=== PATIENT | female | born 1975 | race Caucasian/White ===

== ENCOUNTER → 2017-05-21 | Outpatient (CLI) | payer OTHER | LOC: M RAD 09:23 | DX: Z12.31 Encounter for screening mammogram for malignant neoplasm of breast (principal) ==

== ENCOUNTER → 2017-06-06 | Outpatient (REF) | payer OTHER | LOC: M LAB REF 11:36 | DX: E04.2 Nontoxic multinodular goiter (principal) ==

== ENCOUNTER → 2017-12-23 | Outpatient (CLI) | payer OTHER | LOC: M WUC 10:17 | DX: M25.571 Pain in right ankle and joints of right foot (principal) | CPT/HCPCS: 73610 ==

== ENCOUNTER → 2018-05-22 | Outpatient (CLI) | payer OTHER ==
--- NOTE | 2018-05-22 09:51 | REPMRS ---
Patient History The patient states she has not had a clinical breast exam in over a year. Family history of breast cancer at age 30 in maternal aunt, breast cancer at age 60 in paternal aunt, breast cancer at age 50 in maternal grandmother. Retro-pectoral saline implants in both breasts. Digital Mammo Screening Bilat: May 22, 2018 - Exam #: [id number] Bilateral CC and MLO view(s) were taken. Technologist: Kitty Donnelly, Technologist Prior study comparison: May 21, 2017, bilateral digital mammo screening bilat performed at [facility]. April 29, 2016, digital mammo screening bilat, performed at [facility]. FINDINGS: The breast tissue is heterogeneously dense. This may lower the sensitivity of mammography. There is a fairly symmetric fibroglandular pattern in both breasts. There has been no interval development of masses, areas of architectural distortion or clusters of microcalcifications typical of malignancy. Assessment: BI-RADS/ACR category 2 mammogram. Benign Findings. Recommendation Routine screening mammogram of both breasts in 1 year (for women over age 40). This mammogram was interpreted with the aid of an FDA-approved computer-aided dectection system. Electronically Signed By: Philippe Granados MD 05/22/18 0990
== END ==
LOC: M RAD 08:25
PROVIDERS: ATTEND Student in an Organized Health Care Education/Training Program
DX: Z12.31 Encounter for screening mammogram for malignant neoplasm of breast (principal); Z80.3 Family history of malignant neoplasm of breast

== ENCOUNTER → 2018-06-18 | Outpatient (REF) | payer OTHER ==
[2018-06-18 13:58] LABS: INFLUENZA A AMPLIFICATION POSITIVE (NEGATIVE); INFLUENZA B AMPLIFICATION NEGATIVE (NEGATIVE)
== END ==
LOC: M LAB REF 12:33
PROVIDERS: ATTEND Physician Assistant Medical
DX: J11.1 Influenza due to unidentified influenza virus with other respiratory manifestations (principal)

== ENCOUNTER → 2018-08-07 | Outpatient (CLI) | payer OTHER ==
--- NOTE | 2018-08-07 12:29 | REP ---
Clinical: Left lower quadrant pain. Technique: Transabdominal pelvic ultrasound followed by transvaginal examination for better evaluation of the endometrium and adnexa with color Doppler evaluation of the ovaries. Findings: Heterogeneous anteverted uterus measures 9.3 x 4.5 x 5.4 cm. Endometrial complex measures 15 mm thickness. No discrete uterine or endometrial abnormality appreciated. Incidental section scar noted. Bilateral ovaries are normal in vascularity without torsion. Right ovary measures 3.2 x 2.7 x 2.9 cm and includes 2.2 cm hemorrhagic follicle; RI 0.53. Left ovary measures 2.6 x 2.5 x 2.7 cm with 2.2 cm dominant follicle; RI 0.55. Small amount of free fluid in the posterior cul-de-sac. Impression: 1. Thickened endometrial complex likely physiologic and related to menstrual cycle. No focal abnormality appreciated to the uterus or endometrium. 2. Ovaries include right hemorrhagic cyst and left dominant follicle without evidence for torsion. Electronically Signed by Sergio Seo MD 08/07/2018 12:21 P
== END ==
LOC: M RAD 11:04
PROVIDERS: ATTEND Physician Assistant
DX: R10.32 Left lower quadrant pain (principal); N83.201 Unspecified ovarian cyst, right side

== ENCOUNTER 2019-02-28 09:19 | Observation (INO) | payer OTHER ==
[~2019-02-28] VITALS: Ht 162.6 cm; Wt 73.1 kg
[2019-02-28] MEDS ORDERED: NS 1,000 ML IV ONE (10:00)
[2019-02-28 10:24] LABS: BASO % 0.2 % (0.0-1.0); HEMATOCRIT 32.7 % (36.0-47.0); HEMOGLOBIN 10.5 g/dl (12.0-15.5); MEAN CORPUSCULAR HGB CONC 32.1 g/dl (32.0-36.5); MEAN CORPUSCULAR VOLUME 77.9 fl (80.0-96.0); MONO # 1.1 10^3/uL (0.0-0.8); MONO % 5.4 % (0.0-5.0); NEUTROPHILS # 17.5 10^3/uL (1.5-8.5); NEUTROPHILS % 88.8 % (36.0-66.0); PLATELET COUNT, AUTOMATED 352 10^3/uL (150-450); WHITE BLOOD COUNT 19.7 10^3/uL (4.0-10.0)
[2019-02-28] MEDS ORDERED: KETOROLAC 30 MG/ML VIAL (J1885) IV ONE (10:30)
[2019-02-28 10:51] LABS: ALBUMIN 3.2 GM/DL (3.2-5.2); BILIRUBIN,DIRECT 0.1 MG/DL (0.0-0.2); BILIRUBIN,TOTAL 0.5 MG/DL (0.2-1.0); TOTAL PROTEIN 7.3 GM/DL (6.4-8.2)
[2019-02-28] MEDS ORDERED: ISOVUE-370 76% 100ML VIAL (Q9967) As Ordered ONE (10:56)
[2019-02-28] MEDS ORDERED: MORPHINE 2 MG/ML 1ML VIAL (J2270) IV ONE ×2 (12:15→13:15)
[2019-02-28] MEDS ORDERED: ONDANSETRON 4MG/2ML VIAL (J2405) IV ONE (12:15)
--- NOTE | 2019-02-28 12:24 | REP ---
Pelvic sonography: History: Pelvic pain. Comparison pelvic sonography August 07, 2018. Comparison CT study is from earlier this date. Ultrasound findings: Uterine dimensions are 8.4 x 4.3 x 6.9 cm on transabdominal and transvaginal scanning. Endometrial echo 0.3 cm thick and centrally placed. Uterine texture is somewhat heterogeneous but no focal uterine mass is seen. Visualized bladder santana are smooth. Normal ovaries are seen. Right ovarian dimensions are 2.9 x 2.4 x 3.3 cm. The left ovary measures 3.1 x 1.9 x 3.1 cm. There is a 1.5 cm follicle cyst in the left ovary. Trace of fluid in the cul-de-sac. Impression: No abnormality noted. Electronically Signed by Vin Moran MD 02/28/2019 12:15 P
--- NOTE | 2019-02-28 12:46 | REP ---
CT abdomen and pelvis with IV but without oral contrast: History: Right lower quadrant pain. CT contrast dose: 100 mL of intravenous Isovue [address] findings: Digital preliminary head of human resources radiograph is unremarkable. Normal bowel gas pattern. The lung bases are essentially clear. Augmentation implants are noted in each breast. No adrenal lesion is seen. Liver and spleen are normal in size and homogeneous in texture. No focal hepatic or splenic lesion is seen. No abnormalities noted in the pancreas or in the gallbladder. The kidneys enhance symmetrically and are morphologically intact. The right renal artery is duplicated. There is also an accessory renal vein which goes retroaortic. No retroperitoneal mass or adenopathy is observed. Normal appendix is seen retrocecal. No pelvic or ovarian mass is seen. Urinary bladder is unremarkable. Small and large intestinal bowel loops appear intact. There is fluid content in the distal small bowel and cecum. No large bowel dilation is seen. Impression: Normal appendix seen. No acute abdominal or pelvic abnormality. Electronically Signed by Vin Moran MD 02/28/2019 01:31 P
[2019-02-28 13:47] LABS: HEMATOCRIT 31.1 % (36.0-47.0); HEMOGLOBIN 9.8 g/dl (12.0-15.5); MEAN CORPUSCULAR HEMOGLOBIN 25.1 pg (27.0-33.0); MEAN CORPUSCULAR HGB CONC 31.5 g/dl (32.0-36.5); MEAN CORPUSCULAR VOLUME 79.5 fl (80.0-96.0); PLATELET COUNT, AUTOMATED 282 10^3/uL (150-450); RED BLOOD COUNT 3.91 10^6/uL (4.00-5.40); WHITE BLOOD COUNT 18.5 10^3/uL (4.0-10.0)
[2019-02-28 15:29] LABS: CHLAMYDIA DNA AMPLIFICATION NEGATIVE (NEGATIVE); GC DNA AMPLIFICATION NEGATIVE (NEGATIVE)
[2019-02-28] MEDS ORDERED: MELA5CAP2 PO (16:14)
[2019-02-28] MEDS ORDERED: RA T500C2 PO (16:14)
[2019-02-28] MEDS ORDERED: FISH1000 PO (16:14)
[2019-02-28] MEDS ORDERED: VITA100066 PO (16:14)
[2019-02-28] MEDS ORDERED: TRAZ-186 PO (16:14)
[2019-02-28] MEDS ORDERED: ACETAMINOPHEN TAB 650MG DOSE (2X325MG) PO PRN (16:30)
[2019-02-28] MEDS ORDERED: traZODone 50 MG TAB PO PRN (16:30)
--- NOTE | 2019-02-28 16:45 | CR.PDOC ---
General Date of Consultation: Feb 28, 2019 Referring Provider: A Attending Physician: Kerry Lazo MD Consultation REASON FOR CONSULTATION/CHIEF COMPLAINT: acute abdominal/pelvic pain in a female patient HISTORY OF PRESENT ILLNESS: Nava is a 43yo who presented to the ER today for abdominal/pelvic pain that started last night. She notes that yesterday she overall felt well until the evening when she had excruciating lower abdominal cramping type pain that almost knocked the wind out of her and was unprovoked. She felt faint with that pain and almost called an ambulance, but the pain subsided enough that she decided to stay home. Ultimately, she was able to go to sleep last night, but she woke up with continued pain this morning as well as bloating. She describes the pain as constant more than intermittent but compares it to very severe menstrual cramps. She had an episode of diarrhea and vomiting. She notes no new restaurants or eating anything atypical. However, she remembers that her client on Friday endorsed being on the tail-end of the stomach flu. She denies fevers and chills. No pain with urination. LMP 22 February, she still scant brown spotting. She and her use tubal ligation for contraception. ALLERGIES: Please see below. HOME MEDICATIONS: Please see below. PAST MEDICAL HISTORY: 1. Benign PAST SURGICAL HISTORY: 1. section x2, the 2nd had BTL OB History: , 1 term followed by an emergency and then RLTCS with BTL 5 years ago OIM CONSULTANT History: last papsmear within the last 5 years was normal though she has a history of prior dx of HSV, no other STDs FAMILY HISTORY: non-contributory SOCIAL HISTORY: with 3 young boys Smoked socially up until 1.5yr ago Denies ETOH and illicit drug use REVIEW OF SYSTEMS: All negative with exception of what is noted in HPI PHYSICAL EXAMINATION: VITAL SIGNS: Please see below. 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 Swabs previously obtained by PA. Cervix itself appears normal with no exudates and no erythema Bimanual exam: No tenderness with digital insertion, no tenderness within vaginal vault overlying rectum or bladder, no direct CMT, though with manipulation of ovaries and uterus patient endorses pain across the lower abdomen/pelvis LABORATORY DATA: Please see below. Notable labs: hcg < 5 CBC at 1000: WBC 19.7, H/H 10.5/32.7, plt 352 CBC at 1330: WBC 18.5, H/H 9.8/31.1, plt 282 lipase 135 LFTs wnl UA 1+ blood, 2 WBC, negative bacteria Vaginal cultures: negative G/C, BOB/WP wnl, negative T vaginalis Radiology: Pelvic ultrasound shows no abnormality- 1.5cm functional left ovarian cyst, endometrial stripe 0.3cm, trace free fluid CT abdomen/pelvis shows no acute abdominal or pelvic abnormality, normal appearing appendix ASSESSMENT: Nava is a 43yo presenting with acute abdominal/pelvic pain with no evidence of any gynecologic pathology. While she does have pain in her pelvis/lower abdomen, all laboratory testing and radiology findings lead away from a gynecologic etiology. Vaginal cultures all negative, ovaries and uterus are without abnormalities. I am inclined to believe her symptoms are related to a gastro-intestinal virus, though her elevated white blood cell count would be an atypical finding in this clinical scenario. PLAN: I discussed with ZEYAD Cole that I do not feel there is any gynecologic etiology for patient's symptoms. Plan as per ER and General Surgery team. Dr. Kerry Lazo MD Vital Signs/I&O Vital Signs Date Time Temp Pulse Resp B/P (MAP) Pulse Ox O2 Delivery O2 Flow Rate FiO2 02/28/19 13:55 97.9 92 17 112/57 (75) 100 Room Air Laboratory Data Labs 24H Laboratory Tests 2 02/28/19 09:48: Urine Color YELLOW, Urine Appearance CLEAR, Urine pH 6.0, Urine Specific [place] 1.023, Urine Protein 1+H, Urine Glucose (UA) NEGATIVE, Urine Ketones NEGATIVE, Urine Blood 1+H, Urine Nitrite NEGATIVE, Urine Bilirubin NEGATIVE, Urine Urobilinogen 0.2, Urine Leukocyte Esterase NEGATIVE, Urine WBC (Auto) 2, Urine RBC (Auto) 1, Urine Hyaline Casts (Auto) 0, Urine Bacteria (Auto) NEGATIVE, Urine Squamous Epithelial Cells 1, Urine Mucus (Auto) SMALL, Urine Sperm (Auto) 02/28/19 10:01: Immature Granulocyte % (Auto) 0.6, Neutrophils (%) (Auto) 88.8H, Lymphocytes (%) (Auto) 5.0L, Monocytes (%) (Auto) 5.4H, Eosinophils (%) (Auto) 0.0, Basophils (%) (Auto) 0.2, Neutrophils # (Auto) 17.5H, Lymphocytes # (Auto) 1.0L, Monocytes # (Auto) 1.1H, Eosinophils # (Auto) 0.0, Basophils # (Auto) 0.0, Nucleated Red Blood Cells % (auto) 0.0, Total Bilirubin 0.5, Direct Bilirubin 0.1, Aspartate Amino Transf (AST/SGOT) 9, Alanine Aminotransferase (ALT/SGPT) 12, Alkaline Phosphatase 59, Total Protein 7.3, Albumin 3.2, Albumin/Globulin Ratio 0.78L, Lipase 135 02/28/19 10:11: POC Glucose (Misc Panel) 136H, POC Sodium (Misc Panel) 136, POC Potassium (Misc Panel) 3.7, POC Chloride (Misc Panel) 101, POC Total CO2 (Misc Panel) 25.0, POC Blood Urea Nitrogen (Misc Panel 15, POC Ionized Calcium (Misc Panel) 4.5, POC Creatinine (Misc Panel) 0.8, POC Hematocrit (Misc Panel) 34.0L 02/28/19 10:14: POC Beta HCG, Quantitative < 5.0 02/28/19 13:30: Nucleated Red Blood Cells % (auto) 0.0 02/28/19 13:48: Chlamydia trachomatis DNA (JUAN) NEGATIVE, Neisseria gonorrhoeae DNA (JUAN) NEGATIVE, Trichomonas vaginalis (PCR) NOT DETECTED CBC/BMP Laboratory Tests 02/28/19 10:01 02/28/19 13:30 Microbiology Microbiology 02/28/19 Wet Prep - Final, Complete Allergies Coded Allergies: No Known Allergies (Verified Allergy, Unknown, 02/28/19) Home Medications Scheduled Cholecalciferol (Vitamin D3) (Vitamin D3) 1,000 Unit Tablet, 1,000 UNIT PO QHS, (Reported) Melatonin (Melatonin) 5 Mg Capsule, 5 MG PO QHS, (Reported) [place]-3 Fatty Acids/Fish Oil (Fish Oil 1,000 mg Capsule) 1 Each Capsule, 1,000 MG PO QHS, (Reported) Turmeric Root Extract (Turmeric) 500 Mg Capsule, 500 MG PO QHS, (Reported) Scheduled PRN Trazodone HCl (Trazodone HCl) 50 Mg Tablet, 50 MG PO QHS PRN for SLEEP, (Reported) Kerry Lazo MD Feb 28, 2019 16:08
[2019-02-28] MEDS ORDERED: MORPHINE 2 MG/ML 1ML VIAL (J2270) IV PRN (17:00)
[2019-02-28 17:45] VITALS: BP 121/59
--- NOTE | 2019-02-28 17:47 | HPEPDOC ---
General Date of Admission Feb 28, 2019 at 09:20 Date of Service: Feb 28, 2019 Attending Physician: COREY WELDON MD Chief Complaint The patient is a 43-year-old female admitted with a reason for visit of Abdominal Pain. Source: Patient Exam Limitations: No limitations Timing/Duration: 24 hours Severity: Severe Associated Symptoms: Other (abdominal pain) History of Present Illness 43 yo woman, mother of 3 young boys with no significant past medical history who presented with acute severe abdominal pain that started last evening. She reports sudden severe sharp pain that was severe enough that she had to sit down and feel like it knocked her out that has persisted ever since. Initially the pain was severe and diffuse and slightly improved after one episode of non bilious non bloody emesis and one episode of non bloody diarrhea and staying still. She took some ibuprofen and slightly improved and decided to stay home. She however had severe chills that got better after the ibuprofen. This morning her and children brought her in due to persisting pain Initial vitals in the ED were 119/64m HR 110, RR 18, T 97.6, saturating 97% on r oom air. At presentation her pain had become most severe in the RLQ with an exam that was notable for guarding, bloating, hypoactive sounds and +rebound with severe pain with movement, coughing, palpation. The ED provider consulted both forest logistics manager and surgery given her examination and Dr. Lazo's pelvic exam was grossly normal and she had negative trich and GCCT testing. Initial work up was notable for leukocytosis to 19.7, Hgb 10.5, Hct 32.7, platelets 352, Na 136, K 3.7, Cr 0.8, lipase 135, HCG negative, unremarkable LFTs and a black UA that had 1+ blood. She had a CT A/P with IV contrast that was unrevealing with a normal appearing appendix and she had a pelvic ultrasound that was performed both on transabdominally and transvaginally with no acute pathology. On her evaluation, Dr. Lazo, felt that her pain was not due to a gynecological pathology and recommended evaluation by general surgery. Dr. Crawley was consulted by the ED who looked over her imaging and evaluated her and recommended admission to medicine under observation with low suspicion of acute appendicitis. While in the ED, she had 1L NS, toradol 30 IV x 1, morphine 2mg IV x 2 and zofran 4mg IV x 1. She is now being admitted to medicine for observation with Q4 vitals and abdominal assessments overnight. Home Medications Scheduled Cholecalciferol (Vitamin D3) (Vitamin D3) 1,000 Unit Tablet, 1,000 UNIT PO QHS, (Reported) Melatonin (Melatonin) 5 Mg Capsule, 5 MG PO QHS, (Reported) [place]-3 Fatty Acids/Fish Oil (Fish Oil 1,000 mg Capsule) 1 Each Capsule, 1,000 MG PO QHS, (Reported) Turmeric Root Extract (Turmeric) 500 Mg Capsule, 500 MG PO QHS, (Reported) Scheduled PRN Trazodone HCl (Trazodone HCl) 50 Mg Tablet, 50 MG PO QHS PRN for SLEEP, (Reported) Allergies Coded Allergies: No Known Allergies (Verified Allergy, Unknown, 02/28/19) Past Medical History Medical History None. healthy Surgical History 2 C-sections Family History Significant Family History: No pertinent family hx Social History * Smoker: Denies Alcohol: Denies Drugs: denies Recent Travel/Sick Contacts: Denies: Recent travel, Recent sick contacts Psychosocial History: No pertinent psych hx A-FIB/CHADSVASC A-FIB History Current/History of A-Fib/PAF?: No Current PO Anticoag Therapy: No Age/Risk Factor Scoring CHADSVASC: CHADSVASC Response (Comments) Value Age Risk Factor Age < 65 years old 0 Gender Risk Factor Female 1 Hx of CHF No 0 Hx of HTN No 0 Hx of Stroke/TIA/or VTE No 0 Hx of Diabetes No 0 Hx of Vascular Disease No 0 Total 1 Treatment Treatment ordered: NONE Reason Anticoagulant not given: Not indicated/[id number] Review of Systems Constitutional: Reports: Chills; Denies: Fever, Night Sweats, Weakness, Weight Loss Eyes: Denies: Pain, Vision change ENT: Denies: Head Aches, Ear Pain, Dysphagia Skin: Denies: Rash, Lesions, Breakdown Pulmonary: Denies: Dyspnea, Cough Cardiovascular: Denies: Chest Pain, Palpitations, Orthopnea, Paroxysmal Noc. Dyspnea, Lt Headedness Gastrointestinal: Reports: Nausea, Vomiting, Abdominal Pain, Diarrhea; Denies: Constipation, Melena, Hematochezia Genitourinary: Denies: Dysuria, Frequency, Incontinence, Retention Hematologic: Denies: Bruising, Bleeding Excessively Endocrine: Denies: Polydipsia, Polyphagia, Polyuria, Heat Intolerance, Cold Intolerance, Other Endocrine Sx Musculoskeletal: Denies: Neck Pain, Back Pain, Joint Pain, Muscle Pain, Spasms Neurological: Denies: Weakness, Numbness, Change in speech, Confusion Psych: Reports: Mood Normal; Denies: Depression, Memory Issues Physical Examination General Exam: Positive: Alert, No Acute Distress Eye Exam: Positive: PERRLA, Conjunctiva & lids normal, EOMI; Negative: Sclera icteric ENT Exam: Positive: Atraumatic, Mucous membr. moist/pink, Pharynx Normal Neck Exam: Positive: Supple; Negative: JVD, thyromegaly Chest Exam: Positive: Clear to auscultation, Normal air movement Heart Exam: Positive: Rate Normal, Regular Rhythm, Normal S1, Normal S2; Negative: Murmurs, Rubs Abdomen Exam: Positive: BS Hypoactive, Tenderness (diffuse with worst in RLQ with rebound tenderness ); Negative: Normal bowel sounds (hypoactive sounds), Soft (bloated with involuntary guarding), Hepatospenomegaly, Mass Extremity Exam: Positive: Normal pulses; Negative: Clubbing, Cyanosis, Edema Skin Exam: Positive: Nl turgor and temperature; Negative: Breakdown, Lesion Neuro Exam: Positive: Normal Gait, Normal Speech, Cranial Nerves 3-12 NL, Reflexes 2+ Psych Exam: Positive: Mental status NL, Mood NL, Oriented x 3 Vital Signs Vital Signs Date Time Temp Pulse Resp B/P (MAP) Pulse Ox O2 Delivery O2 Flow Rate FiO2 02/28/19 16:11 98.9 91 17 133/65 (87) 99 Room Air Laboratory Data Labs 24H Laboratory Tests 2 02/28/19 09:48: Urine Color YELLOW, Urine Appearance CLEAR, Urine pH 6.0, Urine Specific [place] 1.023, Urine Protein 1+H, Urine Glucose (UA) NEGATIVE, Urine Ketones NEGATIVE, Urine Blood 1+H, Urine Nitrite NEGATIVE, Urine Bilirubin NEGATIVE, Urine Urobilinogen 0.2, Urine Leukocyte Esterase NEGATIVE, Urine WBC (Auto) 2, Urine RBC (Auto) 1, Urine Hyaline Casts (Auto) 0, Urine Bacteria (Auto) NEGATIVE, Urine Squamous Epithelial Cells 1, Urine Mucus (Auto) SMALL, Urine Sperm (Auto) 02/28/19 10:01: Immature Granulocyte % (Auto) 0.6, Neutrophils (%) (Auto) 88.8H, Lymphocytes (%) (Auto) 5.0L, Monocytes (%) (Auto) 5.4H, Eosinophils (%) (Auto) 0.0, Basophils (%) (Auto) 0.2, Neutrophils # (Auto) 17.5H, Lymphocytes # (Auto) 1.0L, Monocytes # (Auto) 1.1H, Eosinophils # (Auto) 0.0, Basophils # (Auto) 0.0, Nucleated Red Blood Cells % (auto) 0.0, Total Bilirubin 0.5, Direct Bilirubin 0.1, Aspartate Amino Transf (AST/SGOT) 9, Alanine Aminotransferase (ALT/SGPT) 12, Alkaline Phosphatase 59, Total Protein 7.3, Albumin 3.2, Albumin/Globulin Ratio 0.78L, Lipase 135 02/28/19 10:11: POC Glucose (Misc Panel) 136H, POC Sodium (Misc Panel) 136, POC Potassium (Misc Panel) 3.7, POC Chloride (Misc Panel) 101, POC Total CO2 (Misc Panel) 25.0, POC Blood Urea Nitrogen (Misc Panel 15, POC Ionized Calcium (Misc Panel) 4.5, POC Creatinine (Misc Panel) 0.8, POC Hematocrit (Misc Panel) 34.0L 02/28/19 10:14: POC Beta HCG, Quantitative < 5.0 02/28/19 13:30: Nucleated Red Blood Cells % (auto) 0.0 02/28/19 13:48: Chlamydia trachomatis DNA (JUAN) NEGATIVE, Neisseria gonorrhoeae DNA (JUAN) NEGATIVE, Trichomonas vaginalis (PCR) NOT DETECTED CBC/BMP Laboratory Tests 02/28/19 10:01 02/28/19 13:30 Microbiology Microbiology 02/28/19 Wet Prep - Final, Complete Assessment/Plan 43 yo woman with no significant past medical history who presents with acute severe abdominal pain with guarding, rebound and most severe in RLQ c/f appendicitis with leukocytosis and history of chills without radiographic evidence who is now being admitted to medicine for close observation with surgery consult. Abdominal pain: most severe at this time in RLQ with guarding, rebound with leukocytosis c/f appendicitis, however without radiologic evidence at this time, also possible due gastroenteritis given transient emesis and diarrhea -admit to [facility], with q4h vitals and assessment x 3 times -morphine 2Q4H PRN for severe pain -tylenol if febrile, but to notify provider for cultures and antibiotics -surgery consulted, Dr. Crawley aware of patient -Orchard Sprayer consulted by ED, pelvic US was unrevealing -CT A/P done, was unrevealing -if she stools, to send acute diarrhea panel and FOBT Anemia: -Fe panel with AM labs DVT ppx: lovenox Diet: Regular Plan / VTE VTE Prophylaxis Ordered?: Yes COREY WELDON MD Feb 28, 2019 17:47
[2019-02-28] MEDS ORDERED: ONDANSETRON 4MG/2ML VIAL (J2405) IV PRN (18:00)
--- NOTE | 2019-02-28 19:30 | CR ---
DATE OF CONSULTATION: 02/28/2019 PRINCIPAL DIAGNOSIS: Abdominal pain. HISTORY OF PRESENT ILLNESS: The patient is a 43-year-old female who developed acute onset of severe lower abdominal pain. She states that this was very severe last night and actually it is better than it was last night and she had some nonbilious vomiting with one episode. She had some diarrhea but has not had persistent nausea, vomiting, has not had persistent diarrhea. No one else in the family has had GI complaints or any flu symptoms. She presented to the emergency room with this severe pain which she states that it was not as severe as last night and she was complaining of pain mostly on the right lower quadrant but also all across her pelvis area. She had an elevated white count and was somewhat anemic and a CT scan was performed and essentially revealed no significant abnormalities. A ultrasound / pelvic ultrasound revealed no significant abnormalities and at this point I had been asked to see her concerning her abdominal pain issues. PAST MEDICAL HISTORY: Reveals a history of sections times two. MEDICATIONS: Include: - vitamin D - melatonin - fish oil - turmeric PHYSICAL EXAMINATION: Reveals a 43-year-old female who looks uncomfortable. HEENT is unremarkable. The neck is supple without adenopathy. Lungs are clear. Heart is regular. Abdomen is soft, nondistended. She does have some tenderness in the right side but also in the left lower quadrant in the suprapubic area as well. She states that it does hurt her to move but I am not seeing any ecchymosis on the skin or cellulitis or bruising. IMPRESSION AND PLAN: The patient had acute onset of abdominal pain 12 hours prior to admission of undetermined etiology. At this point, had much more of a classic presentation of possible ruptured ovarian cyst, although when I look at her CT I will have to defer to the PROJECT MANAGER/DESIGN MANAGER concerning her uterus, but I am wondering if that seems somewhat enlarged and there is some vagueness in the area of the uterus / pelvic organs, but I am not seeing any significant inflammatory process associated with the colon in this area and nothing in the appendix area The small bowel has a little bit of hyperemic mucosa, but I am not seeing any significant other infectious process present on these studies as of yet. And although her pain is relatively significant, her physical exam does not reveal as much, and is not as concerning. IMPRESSION AND PLAN: I am unsure of the etiology of this abdominal pain. At this point, I do feel that observation is warranted. I had recommended FACING BASTER JUMPBASTING evaluate her for possible pelvic etiology for this. They came by and reportedly did not feel that there was any pelvic issue. And I agree with admission for pain control issues and observation overnight. If she has persistence of her symptoms, she may benefit from a repeat CT scan with by mouth contrast. Otherwise, from a pain control standpoint I do agree that current medications are appropriate. I will add some Toradol scheduled for her to see if that makes a difference on her pain control as well overnight.
[2019-02-28 20:00] VITALS: BP 96/52
[2019-02-28] MEDS: KETOROLAC 30 MG/ML VIAL (J1885) IV SCH (20:18)
[2019-02-28] MEDS ORDERED: ENOXAPARIN 40 MG/0.4 ML SYRINGE (J1650) SC SCH (21:00)
[2019-02-28] MEDS ORDERED: VITAMIN D 1,000 INTERNATIONAL UNITS TABLET PO SCH (21:00)
[2019-03-01] VITALS (7 sets, daily range): BP systolic 90–133; BP diastolic 50–61
[2019-03-01] MEDS ORDERED: NS 1,000 ML IV ONE (02:00)
[2019-03-01] MEDS: KETOROLAC 30 MG/ML VIAL (J1885) IV SCH ×2 (02:11→08:00)
[2019-03-01 07:03] LABS: HEMATOCRIT 28.4 % (36.0-47.0); HEMOGLOBIN 8.8 g/dl (12.0-15.5); MEAN CORPUSCULAR VOLUME 80.7 fl (80.0-96.0); PLATELET COUNT, AUTOMATED 268 10^3/uL (150-450); RED BLOOD COUNT 3.52 10^6/uL (4.00-5.40)
[2019-03-01 08:19] LABS: ALBUMIN 2.4 GM/DL (3.2-5.2); ALT/SGPT 13 U/L (12-78); BILIRUBIN,TOTAL 0.4 MG/DL (0.2-1.0); BLOOD UREA NITROGEN 10 MG/DL (7-18); CALCIUM LEVEL 7.5 MG/DL (8.5-10.1); CARBON DIOXIDE LEVEL 26 MEQ/L (21-32); CHLORIDE LEVEL 109 MEQ/L (98-107); CREATININE FOR GFR 0.82 MG/DL (0.55-1.30); FERRITIN 63 NG/ML (8-252); GLOMERULAR FILTRATION RATE > 60.0 (>58); GLUCOSE, FASTING 111 MG/DL (70-100); IRON (FE) 8 UG/DL (50-170); PERCENT SATURATION 2.5 % (13.2-45.0); POTASSIUM SERUM 3.8 MEQ/L (3.5-5.1); SODIUM LEVEL 143 MEQ/L (136-145); TOTAL IRON BINDING CAPACITY 317 UG/DL (250-450); TOTAL PROTEIN 5.8 GM/DL (6.4-8.2)
[2019-03-01] MEDS ORDERED: INFLUENZA QUADRIVALENT PF VACCINE 0.5ML SYRINGE (90686) IM ONE (09:00)
[2019-03-01 10:55] LABS: FOLATE 6.1 NG/ML (>5.4); VITAMIN B12 LEVEL 306 PG/ML (247-911)
--- NOTE | 2019-03-01 11:25 | DS.PDOC ---
Discharge Summary General Date of Admission Feb 28, 2019 at 09:20 Date of Discharge 03/01/2019 Attending Physician: COREY WELDON MD Specialist/Consultants Involve: Kelton Crawley Jr Specialist/Consultants Involve Dr. Lazo (land economist) Discharge Summary PROCEDURES PERFORMED DURING STAY: None ADMITTING DIAGNOSES: 1. Abdominal pain DISCHARGE DIAGNOSES: 1. Abdominal pain NOS suspicious for transient viral gastroenteritis COMPLICATIONS/CHIEF COMPLAINT: Abdominal Pain. HISTORY OF PRESENT ILLNESS: 43 yo woman, mother of 3 young boys with no significant past medical history who presented with acute severe abdominal pain that started the night before presentation. She reported sudden severe sharp pain that was severe enough that she had to sit down and feel like it knocked her out that persisted through to the next day. Initially the pain was severe and diffuse and slightly improved after one episode of non bilious non bloody emesis and one episode of non bloody diarrhea and staying still. She took some ibuprofen and it slightly improved and decided to stay home. She however had severe chills that got better after the ibuprofen. The next morning, her and children brought her in due to persisting pain. HOSPITAL COURSE: Initial vitals in the ED were 119/64m HR 110, RR 18, T 97.6, saturating 97% on room air. At presentation her pain had become most severe in the RLQ with an exam that was notable for involuntary guarding, bloating, hypoactive sounds and +rebound with severe pain with movement, coughing, palpation. The ED provider consulted both land economist and surgery given her examination and Dr. Lazo's pelvic exam was grossly normal and she had negative trichomonas and GCCT testing. Initial work up was notable for leukocytosis to 19.7, Hgb 10.5, Hct 32.7, platelets 352, Na 136, K 3.7, Cr 0.8, lipase 135, HCG negative, unremarkable LFTs and a bland UA that had 1+ blood. She had a CT A/P with IV contrast that was unrevealing with a normal appearing appendix and she had a pelvic ultrasound that was performed both transabdominally and transvaginally with no acute pathology. On her evaluation, Dr. Lazo, felt that her pain was not due to a gynecological pathology and recommended evaluation by general surgery. Dr. Crawley was consulted by the ED who looked over her imaging and evaluated her and recommended admission to medicine under observation with low suspicion of acute appendicitis. While in the ED, she had 1L NS, toradol 30 IV x 1, morphine 2mg IV x 2 and zofran 4mg IV x 1. She was admitted to medicine for observation with Q4 vitals and abdominal assessments overnight and had a low grade temp to 100.4. Her exam otherwise improved and was given toradol for pain with good effect. This morning, her exam has improved with an abdomen that is normoactive, soft, with improved but persisting RLQ pain without rebound at this time. She is tolerating PO and has not had N/V/D. I am not discharging her home with close PCP follow up within the next 72 hours as well as PRN toradol for 3 days. DISCHARGE MEDICATIONS: Please see below. ALLERGIES: Please see below. PHYSICAL EXAMINATION ON DISCHARGE: VITAL SIGNS: Please see below. GENERAL: NAD HEENT: NCAT, PERRLA, EOMI, MMM NECK: Supple, no jvd or adenopathy CARDIOVASCULAR EXAMINATION: RRR, no mrg RESPIRATORY EXAMINATION: CTAB ABDOMINAL EXAMINATION: Normoactive bowel sounds, soft, RLQ pain with no rebound tenderness. EXTREMITIES: WWP, no LE edema SKIN: no rashes NEUROLOGICAL EXAMINATION: AOx3, CN2-12 intact, normal gait PSYCHIATRIC EXAMINATION: AOx3 LABORATORY DATA: Please see below. IMAGING: Pelvic Ultrasound: Uterine dimensions are 8.4 x 4.3 x 6.9 cm on transabdominal and transvaginal scanning. Endometrial echo 0.3 cm thick and centrally placed. Uterine texture is somewhat heterogeneous but no focal uterine mass is seen. Visualized bladder santana are smooth. Normal ovaries are seen. Right ovarian dimensions are 2.9 x 2.4 x 3.3 cm. The left ovary measures 3.1 x 1.9 x 3.1 cm. There is a 1.5 cm follicle cyst in the left ovary. Trace of fluid in the cul-de-sac. Impression: No abnormality noted. CT abdomen and pelvis with IV but without oral contrast: Digital preliminary manager of administration radiograph is unremarkable. Normal bowel gas pattern. The lung bases are essentially clear. Augmentation implants are noted in each breast. No adrenal lesion is seen. Liver and spleen are normal in size and homogeneous in texture. No focal hepatic or splenic lesion is seen. No abnormalities noted in the pancreas or in the gallbladder. The kidneys enhance symmetrically and are morphologically intact. The right renal artery is duplicated. There is also an accessory renal vein which goes retroaortic. No retroperitoneal mass or adenopathy is observed. Normal appendix is seen retrocecal. No pelvic or ovarian mass is seen. Urinary bladder is unremarkable. Small and large intestinal bowel loops appear intact. There is fluid content in the distal small bowel and cecum. No large bowel dilation is seen. Impression: Normal appendix seen. No acute abdominal or pelvic abnormality. PROGNOSIS: Good ACTIVITY: As tolerated DIET: Regular DISCHARGE PLAN: Home with close PCP follow up DISPOSITION: Home DISCHARGE INSTRUCTIONS: 1. Please see your PCP within 2-3d to follow up on the abdominal pain. I have pr escribed 3days of toradol 30 mg every 6 hours as needed for severe abdominal pain for the next 3 days, with close PCP follow up. Please return to the hospital if your symptoms become worse or if you have fever and chills. ITEMS TO FOLLOWUP ON ON OUTPATIENT: 1. Abdominal pain DISCHARGE CONDITION: Stable TIME SPENT ON DISCHARGE: 41 minutes. Vital Signs/I&Os Vital Signs Date Time Temp Pulse Resp B/P (MAP) Pulse Ox O2 Delivery O2 Flow Rate FiO2 03/01/19 08:00 99.5 98 18 104/55 (71) 98 Room Air I&O- Last 24 Hours up to 6 AM 03/01/19 05:59 Intake Total 1240 ml Output Total 925 ml Balance 315 ml Laboratory Data Labs 24H Laboratory Tests 2 02/28/19 13:30: Nucleated Red Blood Cells % (auto) 0.0 02/28/19 13:48: Chlamydia trachomatis DNA (JUAN) NEGATIVE, Neisseria gonorrhoeae DNA (JUAN) NEGATIVE, Trichomonas vaginalis (PCR) NOT DETECTED 03/01/19 02:05: Troponin I < 0.02 03/01/19 06:51: Nucleated Red Blood Cells % (auto) 0.0 03/01/19 06:52: Anion Gap 8, Glomerular Filtration Rate > 60.0, Calcium Level 7.5L, Iron Level 8L, Total Iron Binding Capacity 317, Transferrin % Saturation 2.5L, Ferritin 63, Total Bilirubin 0.4, Aspartate Amino Transf (AST/SGOT) 10, Alanine Aminotransferase (ALT/SGPT) 13, Alkaline Phosphatase 64, Total Protein 5.8#L, Albumin 2.4#L, Albumin/Globulin Ratio 0.71L, Vitamin B12 Level 306, Folate 6.1 CBC/BMP Laboratory Tests 02/28/19 13:30 03/01/19 06:51 03/01/19 06:52 Microbiology Microbiology 02/28/19 Wet Prep - Final, Complete Discharge Medications Scheduled Cholecalciferol (Vitamin D3) (Vitamin D3) 1,000 Unit Tablet, 1,000 UNIT PO QHS, (Reported) Melatonin (Melatonin) 5 Mg Capsule, 5 MG PO QHS, (Reported) [place]-3 Fatty Acids/Fish Oil (Fish Oil 1,000 mg Capsule) 1 Each Capsule, 1,000 MG PO QHS, (Reported) Turmeric Root Extract (Turmeric) 500 Mg Capsule, 500 MG PO QHS, (Reported) Scheduled PRN Trazodone HCl (Trazodone HCl) 50 Mg Tablet, 50 MG PO QHS PRN for SLEEP, (Re ported) Allergies Coded Allergies: No Known Allergies (Verified Allergy, Unknown, 02/28/19) COREY WELDON MD Mar 01, 2019 11:25
[2019-03-01] MEDS ORDERED: KETO10TAB PO ×2 (11:28→11:41)
== END 2019-03-01 12:40 | disposition home or self-care (01) ==
LOC: M ED 09:19 → M ED INP 09:20 → ENRESERVDT 16:56 → ENRESERVTM 16:56 → M PED 17:40
PROVIDERS: ADMIT Internal Medicine; ATTEND Internal Medicine
DX: R10.9 Unspecified abdominal pain (principal); Z79.899 Other long term (current) drug therapy; R19.7 Diarrhea, unspecified; R11.10 Vomiting, unspecified; D64.9 Anemia, unspecified
CPT/HCPCS: 36415; 74177; 76830; 76856; 80047; 80053; 80076; 81001; 82607; 82728; 82746; 83550; 83690; 84484; 84702; 85025; 85027; 87210; 87661; 93976; 96361; 96372; 96374; 96375; 96376; 99284; J1650; J1885; J2270; J2405; Q9967

== ENCOUNTER → 2019-03-03 | Outpatient (REF) | payer OTHER ==
[~2019-03-03] MED LIST: FISH1000 PO; KETO10TAB PO; MELA5CAP2 PO; RA T500C2 PO; TRAZ-186 PO; VITA100066 PO
== END ==
LOC: M LAB REF 11:14
PROVIDERS: ATTEND Physician Assistant
DX: R19.7 Diarrhea, unspecified (principal); R50.9 Fever, unspecified

== ENCOUNTER 2019-03-29 08:10 | Day surgery (SDC) | payer OTHER ==
[~2019-03-29] VITALS: Ht 165.1 cm; Wt 72.6 kg
[~2019-03-29 08:10] MED LIST changes: +IRON27TA2 PO; +LR 1,000 ML IV ONE; +ceFAZolin SOD 2 GM in IV 1 EA IV ONE
[2019-03-29] MEDS ORDERED: fentaNYL 100 MCG/2 ML INJECTION (J3010) As Ordered ONE (09:24)
[2019-03-29] MEDS ORDERED: propofoL 200 MG/20 ML VIAL As Ordered ONE (09:24)
[2019-03-29] MEDS ORDERED: LIDOCAINE 2% INJ 100 MG/5 ML SDV (FOR ANES.) As Ordered ONE (09:24)
[2019-03-29] MEDS ORDERED: MIDAZOLAM INJ 2 MG/2 ML VIAL (J2250) As Ordered ONE (09:25)
[2019-03-29] MEDS ORDERED: SCOPOLAMINE 1MG TRANSDERMAL PATCH As Ordered ONE (10:07)
[2019-03-29] MEDS ORDERED: SCOPOLAMINE 1MG TRANSDERMAL PATCH TOP ONE (10:30)
[2019-03-29] MEDS ORDERED: BUPIVACAINE HCL 0.5% 30 ML VIAL As Ordered ONE (12:41)
[2019-03-29] MEDS ORDERED: dexameTHASONE 4 MG/ML 1ML VIAL (J1100) As Ordered ONE (12:57)
[2019-03-29] MEDS ORDERED: METOCLOPRAMIDE INJ 10MG/2ML VIAL (J2765) As Ordered ONE (12:57)
[2019-03-29] MEDS ORDERED: ACETAMINOPHEN 1000MG 100ML IV BTL (OFIRMEV) (J0131 PER 10MG) As Ordered ONE (13:02)
[2019-03-29] MEDS ORDERED: ONDANSETRON 4MG/2ML VIAL (J2405) As Ordered ONE (13:02)
[2019-03-29] MEDS ORDERED: ePHEDrine SULFATE 25 MG/5 ML(5MG/ML) SYRINGE As Ordered ONE (13:18)
[2019-03-29] MEDS ORDERED: HYDROmorphone HCL 2 MG/ML 1ML VIAL (J1170) As Ordered ONE (13:39)
[2019-03-29] MEDS ORDERED: PERCOCET 5MG/325MG TAB As Ordered ONE (14:32)
[2019-03-29] MEDS ORDERED: ONDANSETRON 4MG/2ML VIAL (J2405) IV PRN (15:15)
[2019-03-29] MEDS ORDERED: MEPERIDINE INJ 25 MG/ML VIAL (J2175) IV PRN (15:15)
[2019-03-29] MEDS ORDERED: LR 1,000 ML IV SCH ×2 (15:15→16:16)
[2019-03-29] MEDS ORDERED: METOCLOPRAMIDE INJ 10MG/2ML VIAL (J2765) IV PRN (15:15)
[2019-03-29] MEDS ORDERED: PERCOCET 5MG/325MG TAB PO PRN (15:15)
[2019-03-29] MEDS ORDERED: fentaNYL 100 MCG/2 ML INJECTION (J3010) IV PRN (15:15)
[2019-03-29 15:35] VITALS: BP 115/57
--- NOTE | 2019-03-30 23:02 | RO ---
DATE OF PROCEDURE: 03/29/2019 PREPROCEDURE DIAGNOSIS: Right peroneal brevis tear. POSTPROCEDURE DIAGNOSIS: Right peroneal brevis tear and tenosynovitis of the peroneus longus tendon, also tendinosis and intra-tendon cyst formation of the peroneus brevis tendon. PROCEDURE: Right peroneal brevis debridement and repair, right peroneus longus debridement. SURGEON: Karen Rojas MD CAMPAIGN ADVISOR: ZEYAD Jimenez ANESTHESIA: LMA. SPECIMENS: Peroneus brevis tendinosis segment and also intra-tendon cyst. ESTIMATED BLOOD LOSS: 25 mL. COMPLICATIONS: None. CONDITION: Stable to recovery. INDICATIONS: Nava Campbell is a 43-year-old female who has had longstanding pain in the region of her right peroneal tendons. She has failed conservative measures. MRI indicates right peroneal brevis tear. Risks and benefits of surgery were discussed with the patient in detail and included, but are not limited to infection, damage to nerves and blood vessels, continued pain and stiffness, need for additional procedures. Informed consent was obtained in the office. DESCRIPTION OF PROCEDURE: The patient was met in the preoperative holding area where her right lower extremity was marked as the correct operative site. She was taken to the operating room and placed in the supine position on the operating room table. Bony prominences were well padded. A well-padded tourniquet was placed on the right upper thigh. A bump was placed under the ipsilateral hip. The patient received antibiotics within 60 minutes prior to incision. Right lower extremity was prepped and draped in the normal sterile fashion. An official time-out was held where the correct patient, operative side and operative procedure were verified. Leg was exsanguinated with an Esmarch bandage and tourniquet was inflated to 350 mmHg. An incision was made directly over the peroneal tendons. The tendon sheath was incised, and there was found to be a fairly significant amount of fluid and synovitis throughout both tendons. The superior peroneal retinaculum was sharply incised off the distal fibula and tagged for later repair. Tendons were examined to the region just distal of the peroneal tubercle. Overall the peroneus longus was intact, but did have a fair amount of tenosynovitis, which was debrided. The peroneus brevis had two main tears, one of which an intra-tendon cyst had formed. The cyst was debrided from this area, as well as some tendinotic tissue, which had also formed in the region of the tear. This was then repaired with a running #3-0 Vicryl. This tear was on the more lateral aspect of the tendon and medially there was also a small tear. I was able to repair this and tubularize the tendon further with #3-0 Vicryl suture. Following repair, there was good smooth gliding of the tendons of both the peroneus brevis and longus. Copious irrigation was performed. I repaired the superior peroneal retinaculum back to the fibula using #2-0 FiberWire through two drill holes that were made with a #2-0 drill through the distal fibula. There was a good repair and no dislocation of the tendons at this time. Copious irrigation was again performed and soft tissues were closed with #3-0 Vicryl and skin was closed with a #3-0 running nylon. A sterile dressing was applied. The patient was placed into a well-padded splint. The patient was extubated and transferred to the recovery room in stable condition. ZEYAD Jimenez, was present for the entire procedure and was essential for soft tissue retraction, aid in repair of the tendon, and overall decrease in tourniquet time. PLAN: The patient will be nonweightbearing for 6 weeks. She will be in a splint or cast for at least 3 weeks. I will see her back in 2 weeks for suture removal.
== END 2019-03-29 15:58 | disposition home or self-care (01) ==
LOC: M SDC 08:10
PROVIDERS: ATTEND Orthopaedic Surgery
DX: S86.311A Strain of muscle(s) and tendon(s) of peroneal muscle group at lower leg level, right leg, initial encounter (principal); M76.71 Peroneal tendinitis, right leg; D64.9 Anemia, unspecified; Z79.899 Other long term (current) drug therapy; Y92.9 Unspecified place or not applicable; Y93.9 Activity, unspecified
CPT/HCPCS: 27658; 27680; 88304; J0131; J0690; J1100; J1170; J2250; J2405; J2765; J3010

== ENCOUNTER 2019-07-04 18:33 | Emergency (ER) | payer OTHER ==
[~2019-07-04] VITALS: Ht 165.1 cm; Wt 76.7 kg
[~2019-07-04 18:33] MED LIST changes: -LR 1,000 ML IV ONE; -ceFAZolin SOD 2 GM in IV 1 EA IV ONE
[2019-07-04 18:34] VITALS: BP 113/60
[2019-07-04] MEDS ORDERED: methocarbamoL 750 MG TAB PO ONE (19:00)
[2019-07-04] MEDS ORDERED: KETOROLAC 60 MG/2 ML VIAL IM ONE (19:00)
[2019-07-04] MEDS ORDERED: LIDOCAINE 5% (LIDODERM) PATCH TD ONE (19:00)
[2019-07-04] MEDS ORDERED: MIRALAX *UNIT DOSE* 17GM PACKET PO STA (20:04)
[2019-07-04] MEDS ORDERED: ROBA750T4 PO (20:06)
[2019-07-04] MEDS ORDERED: NAPR-837 PO (20:06)
[2019-07-04] MEDS ORDERED: ASPE4PAD TOP (20:06)
--- NOTE | 2019-07-05 02:29 | REP ---
Clinical: Constipation. Technique: Single supine view of the abdomen and pelvis. Findings: Bowel gas pattern is nonspecific. Phleboliths noted in the pelvis. Skeletal structures are intact. Impression: Nonspecific abdominal radiograph. Electronically Signed by Sergio Seo MD 07/05/2019 02:20 A
[2019-07-05] MEDS ORDERED: **NOTE PATIENT COMMENT** MISC XX SCH (07:00)
== END 2019-07-04 20:15 | disposition home or self-care (01) ==
LOC: M ED 18:33
DX: M54.5 Low back pain (principal); K59.00 Constipation, unspecified; Z79.899 Other long term (current) drug therapy
CPT/HCPCS: 74018; 81001; 96372; 99282; J1885

== ENCOUNTER → 2019-07-29 | Outpatient (CLI) | payer OTHER ==
[~2019-07-29] MED LIST changes: +ASPE4PAD TOP; +NAPR-837 PO; +ROBA750T4 PO
--- NOTE | 2019-07-29 14:04 | REPMRS ---
Patient History The patient states she has not had a clinical breast exam in over a year. Family history of breast cancer at age 30 in maternal aunt, breast cancer at age 60 in paternal aunt, breast cancer at age 50 in maternal grandmother. Retro-pectoral saline implants in both breasts. Digital Woman Screen Mammo: July 29, 2019 - Exam #: [id number] Bilateral CC and MLO view(s) were taken. Technologist: Mavis Gonzales, Technologist Prior study comparison: May 22, 2018, bilateral digital mammo screening bilat, performed at [facility]. May 21, 2017, bilateral digital mammo screening bilat, performed at [facility]. April 29, 2016, digital mammo screening bilat, performed at [place]. FINDINGS: The breast tissue is extremely dense which could obscure a lesion on mammography. There is a needle biopsy marker clip again noted in the upper outer quadrant of the left breast. The Volpara volumetric breast density category is: D. The visualized implant margins are smooth. There is a well circumscribed stable 7 mm nodule in the medial aspect of the right breast unchanged from multiple prior studies. Breast parenchymal density pattern is essentially symmetric. No dominant mass, grouped microcalcification, or architectural distortion is evident on either side. 3-D tomosynthesis shows no additional findings. No significant changes when compared with prior studies. Assessment: BI-RADS/ACR category 2 mammogram. Benign Findings. Recommendation Routine screening mammogram of both breasts in 1 year (for women over age 40). This patient's Lifetime Breast Cancer RIsk is estimated at 18.6 %. This mammogram was interpreted with the aid of an FDA-approved computer-aided dectection system. Electronically Signed By: Sergey Moran MD 07/29/19 0264
== END ==
LOC: M WHC 12:58
PROVIDERS: ATTEND Internal Medicine
DX: Z12.31 Encounter for screening mammogram for malignant neoplasm of breast (principal)

== ENCOUNTER 2019-09-21 11:30 | Day surgery (SDC) | payer OTHER ==
[~2019-09-21] VITALS: Ht 165.1 cm; Wt 70.7 kg
[~2019-09-21 11:30] MED LIST changes: +LIDOCAINE 1% MDV 20ML VIAL SQ PRN; +LR 1,000 ML IV ONE; +ceFAZolin SOD 2 GM in IV 1 EA IV ONE
[2019-09-21] MEDS ORDERED: SCOPOLAMINE 1MG TRANSDERMAL PATCH TOP ONE (13:15)
[2019-09-21] MEDS ORDERED: BUPIVACAINE HCL 0.25% 30ML VIAL As Ordered ONE (13:32)
[2019-09-21] MEDS ORDERED: BUPIVACAINE HCL 0.5% 30 ML VIAL As Ordered ONE (13:32)
[2019-09-21] MEDS ORDERED: LIDOCAINE 2% 100MG/5ML SDV (FOR ANES.) As Ordered ONE (14:06)
[2019-09-21] MEDS ORDERED: MIDAZOLAM INJ 2MG/2ML VIAL (J2250 PER 1MG) As Ordered ONE (14:06)
[2019-09-21] MEDS ORDERED: KETOROLAC 60MG 2ML VIAL As Ordered ONE (14:06)
[2019-09-21] MEDS ORDERED: dexameTHASONE 4 MG/ML 1ML VIAL (J1100 PER 1MG) As Ordered ONE ×2 (14:06→14:07)
[2019-09-21] MEDS ORDERED: propofoL 200 MG/20 ML VIAL As Ordered ONE (14:06)
[2019-09-21] MEDS ORDERED: ROCURONIUM BROMIDE 50 MG/5 ML VIAL As Ordered ONE (14:06)
[2019-09-21] MEDS ORDERED: ONDANSETRON 4MG/2ML VIAL As Ordered ONE (14:06)
[2019-09-21] MEDS ORDERED: fentaNYL 100 MCG/2 ML INJECTION (J3010) As Ordered ONE ×2 (14:06→17:18)
[2019-09-21] MEDS ORDERED: HYDROmorphone HCL 2 MG/ML 1ML VIAL (J1170) As Ordered ONE (14:08)
[2019-09-21] MEDS ORDERED: SUGAMMADEX SODIUM 500 MG/5 ML VIAL (BRIDION) As Ordered ONE (14:38)
[2019-09-21] MEDS ORDERED: KETOROLAC 30 MG/ML 1ML VIAL IV PRN (16:45)
[2019-09-21] MEDS ORDERED: oxyCODONE 5MG TAB PO PRN (17:30)
[2019-09-21] MEDS ORDERED: ONDANSETRON 4MG/2ML VIAL IV PRN (17:30)
[2019-09-21] MEDS ORDERED: LR 1,000 ML IV SCH ×2 (17:30→17:45)
[2019-09-21] MEDS ORDERED: fentaNYL 100 MCG/2 ML INJECTION (J3010) IV PRN (17:30)
[2019-09-21 19:22] VITALS: BP 116/66
--- NOTE | 2019-09-22 07:28 | REP ---
A single fluoroscopic image of the midfoot region of the right foot was obtained in my absentia. 21 seconds of fluoroscopy time was provided Dr. Karen Rojas for her procedure. Electronically Signed by Jose Daniel Nova DO 09/22/2019 09:35 A
--- NOTE | 2019-09-28 16:17 | RO ---
DATE OF PROCEDURE: 09/21/2019 PREPROCEDURE DIAGNOSIS: Right peroneal tendon pain, status post repair. POSTPROCEDURE DIAGNOSES: 1. Right peroneal tenosynovitis and stenosis. 2. Right peroneus brevis significant stenosis. 3. Right ankle instability. PROCEDURES: 1. Debridement peroneus longus and brevis tendons. 2. Allograft reconstruction of the peroneus brevis tendon. 3. Bromstrom-Jimenez procedure. 4. Use of the mini C-arm. SURGEON: Karen Rojas MD SENIOR PEOPLESOFT DEVELOPER: ZEYAD Hsu ANESTHESIA: General endotracheal with popliteal nerve block. SPECIMENS: Peroneus brevis. ESTIMATED BLOOD LOSS: 25 mL. COMPLICATIONS: None. CONDITION: Stable to recovery. INDICATIONS: Nava Campbell is a 44-year-old female who has had longstanding pain, status post a peroneal tendon repair over 6 months ago. She has failed conservative measures. Risks and benefits of surgery were discussed with the patient in detail and included, but are not limited to, infection, damage to nerves and blood vessels, continued pain and stiffness, need for additional procedures. Informed consent was obtained in the office. DESCRIPTION OF PROCEDURE: The patient was met in the preoperative holding area where her right lower extremity was marked as the correct operative site. She was taken to the operating room and placed in the supine position on the operating room table. Bony prominences were well padded. Antibiotics were given within 60 minutes prior to incision. A well-padded tourniquet was placed on the right upper thigh. Right lower extremity was prepped and draped in the normal sterile fashion. An official time-out was held where the correct patient, operative side and operative procedure were verified. Using the patient's prior scar, extensile incision over the peroneal tendons was made. It was expanded slightly proximally and distally. There was abundant scar tissue upon incision. This was carefully debrided. The tendons were exposed. There was significant scarring at the superior peroneal retinaculum, and this was also incised and tied for later repair after thorough scar debridement. The peroneus longus overall was intact and of good color and caliber; however, it was significantly scarred to both surrounding tissues and peroneus brevis. This was debrided thoroughly. There was significant scar tissue and tenosynovitis in this area. Similarly, the peroneus brevis was scarred down with significant scar tissue and tenosynovitis. It was thoroughly debrided and found to be quite large in size. The majority of the prior tendon tears had healed; however, there was significant tendinosis starting at the retromalleolar area and extending to almost the base of the 5th metatarsal. Given this, the decision was made to do an allograft tendon reconstruction. A semitendinosus graft was utilized; it was 0.65 mm x approximately 25 mm. It was prepped on the back table and tubularized with whipstitches using #2 FiberWire on both ends. Tendon was stretched with the GraftMaster. The Pulvertaft weave was used proximally and secured with #2-0 FiberWire. Then distally, there was very little good tendon left near the insertion, so a 4.5 mm CorkScrew suture anchor was placed under fluoroscopic guidance using the mini C-arm in order to avoid any cartilage or penetrating the cortex. This had good purchase. The graft was then secured to the suture anchor, and the small surrounding area of insertion that was still intact. The peroneus brevis segment of tendinosis was then excised, which was the majority of the tendon. The graft essentially ran from the musculotendinous junction down to the insertion. It was further secured with #0 Vicryl. There was good tension on the tendon, which was almost identical to the peroneus longus tension. There was smooth gliding with range of motion of the tendons as well. At this point, attention was turned to the ankle instability. A cuff of tissue was taken down off the distal aspect of the fibula. Bovie was used to remove any remaining soft tissue. Two suture anchors, which were #3-0 Arthrex SutureTaks, were placed in the anatomic locations in the anterior talofibular ligament (ATFL) and calcaneofibular ligament (CFL). The tissue was then brought back through with the suture anchors and secured tightly to the distal fibula. It was further reinforced with #0 Vicryl in a Jimenez modification. I then continued to debride the scar tissue in the posterior aspect of the fibula in the region of the peroneal tendons and superior peroneal retinaculum. This was loosely approximated to avoid any further stenosis. Again, there was good gliding of the tendons, and the ankle was stable to anterior drawer and talar tilt testing. Copious irrigation was performed. Soft tissues were closed using #3-0 Vicryl, and the skin was closed using #3-0 nylon. A sterile dressing was applied followed by a well-padded splint. The patient was extubated and transferred to the recovery room in stable condition. PLAN: The patient will be on aspirin for deep vein thrombosis (DVT) prophylaxis. She will be non-weightbearing for 6 weeks. We will see her back in a week for a wound check.
== END 2019-09-21 19:30 | disposition home or self-care (01) ==
LOC: M SDC 11:30
PROVIDERS: ATTEND Orthopaedic Surgery
DX: M76.71 Peroneal tendinitis, right leg (principal); M67.873 Other specified disorders of tendon, right ankle and foot; M25.371 Other instability, right ankle; D64.9 Anemia, unspecified
CPT/HCPCS: 27698; 64445; 73600; 88304; C1713; C1762; J0690; J1100; J1170; J1885; J2250; J2405; J3010

== ENCOUNTER → 2020-08-08 | Outpatient (CLI) | payer OTHER ==
[~2020-08-08] MED LIST changes: -LIDOCAINE 1% MDV 20ML VIAL SQ PRN; -LR 1,000 ML IV ONE; -ceFAZolin SOD 2 GM in IV 1 EA IV ONE
--- NOTE | 2020-08-08 09:40 | REPMRS ---
Patient History The patient states she had a clinical breast exam in 04/2020. Family history of breast cancer at age 30 in maternal aunt, breast cancer at age 60 in paternal aunt, breast cancer at age 50 in maternal grandmother. Benign US guided breast biopsy of the left breast, 2016. Retro-pectoral saline implants in both breasts, 2000. Taking hormonal contraceptives for 2 months. Patient states no breast complaints today. Patient has signed MRS History Sheet. Digital Woman Screen Mammo: August 08, 2020 - Exam #: [id number] Bilateral CC and MLO view(s) were taken. Technologist: Kelly Xiao, Technologist Prior study comparison: July 29, 2019, bilateral digital woman screen mammo performed at [facility]. May 22, 2018, bilateral digital mammo screening bilat, performed at [facility]. May 21, 2017, bilateral digital mammo screening bilat, performed at [facility]. FINDINGS: The breast tissue is extremely dense which could obscure a lesion on mammography. The visualized implant margins are smooth. The Volpara volumetric breast density category is: D. Breast parenchymal density pattern is essentially symmetric. No dominant mass, grouped microcalcification, or architectural distortion is evident on either side. There is a needle biopsy marker clip again noted on the left. 3-D tomosynthesis shows no additional findings. No significant changes when compared with prior studies. Assessment: BI-RADS/ACR category 2 mammogram. Benign Findings. Recommendation Routine screening mammogram of both breasts in 1 year (for women over age 40). This patient's [facility] Lifetime Breast Cancer RIsk is estimated at %. This mammogram was interpreted with the aid of an FDA-approved computer-aided dectection system. Electronically Signed By: Sergey Moran MD 08/08/20 0940
== END ==
LOC: M WHC 08:06
PROVIDERS: ATTEND Student in an Organized Health Care Education/Training Program
DX: Z12.31 Encounter for screening mammogram for malignant neoplasm of breast (principal); Z80.3 Family history of malignant neoplasm of breast; Z98.82 Breast implant status

== ENCOUNTER → 2021-10-02 | Outpatient (CLI) | payer OTHER | LOC: M WHC 07:55 | PROVIDERS: ATTEND Internal Medicine | DX: Z12.31 Encounter for screening mammogram for malignant neoplasm of breast (principal); R92.2 Inconclusive mammogram ==

== ENCOUNTER → 2021-10-23 | Outpatient (CLI) | payer OTHER | LOC: M WHC 10:09 | PROVIDERS: ATTEND Internal Medicine | DX: R92.2 Inconclusive mammogram (principal); N63.10 Unspecified lump in the right breast, unspecified quadrant | CPT/HCPCS: 77065; G0279 ==

== ENCOUNTER → 2022-06-10 | Outpatient (REF) | payer OTHER | LOC: M LAB REF 17:16 | PROVIDERS: ATTEND Internal Medicine | DX: G60.9 Hereditary and idiopathic neuropathy, unspecified (principal) ==

== ENCOUNTER 2022-11-22 07:04 | Day surgery (SDC) | payer OTHER ==
[~2022-11-22] VITALS: Ht 165.1 cm; Wt 72.5 kg
[~2022-11-22 07:04] MED LIST changes: +LEXA1TAB PO; +LEXA1TAB2 PO; +LEXA5TAB13 PO; +LIDOCAINE 2% 100MG/5ML SDV (FOR ANES.) As Ordered ONE; +MELO7.5T35 PO; +NEPH1TAB PO; +NS 1,000 ML IV ONE; +PHEN15CA6 PO; +ROSU5TAB5 PO; +VITMTA PO; +propofoL 200 MG/20 ML VIAL As Ordered ONE
[2022-11-22 08:11] VITALS: TEMP 98.3
[2022-11-22 08:33] VITALS: BP 134/69; O2SAT 96
== END 2022-11-22 08:34 | disposition home or self-care (01) ==
LOC: M OPP 07:04
PROVIDERS: ATTEND Internal Medicine Gastroenterology
DX: Z12.11 Encounter for screening for malignant neoplasm of colon (principal); Z53.8 Procedure and treatment not carried out for other reasons

== ENCOUNTER → 2022-12-05 | Outpatient (CLI) | payer OTHER ==
[~2022-12-05] MED LIST changes: -LIDOCAINE 2% 100MG/5ML SDV (FOR ANES.) As Ordered ONE; -NS 1,000 ML IV ONE; -propofoL 200 MG/20 ML VIAL As Ordered ONE
== END ==
LOC: M WHC 08:58
PROVIDERS: ATTEND Internal Medicine
DX: Z12.31 Encounter for screening mammogram for malignant neoplasm of breast (principal)

== ENCOUNTER 2023-07-19 02:04 | Emergency (ER) | payer OTHER ==
[~2023-07-19] VITALS: Ht 165.1 cm; Wt 70.0 kg
[2023-07-19 02:04] VITALS: BP 143/72; TEMP 97.6; O2SAT 98
[~2023-07-19 02:04] MED LIST changes: +ROSU5TAB40 PO; -ROSU5TAB5 PO
== END 2023-07-19 03:20 | disposition left against medical advice (07) ==
LOC: M ED 02:04
DX: Z53.21 Procedure and treatment not carried out due to patient leaving prior to being seen by health care provider (principal)

== ENCOUNTER → 2023-12-22 | Outpatient (CLI) | payer OTHER | LOC: M WHC 09:05 | PROVIDERS: ATTEND Nurse Practitioner Family | DX: Z12.31 Encounter for screening mammogram for malignant neoplasm of breast (principal); R92.333 Mammographic heterogeneous density, bilateral breasts; Z98.82 Breast implant status; Z12.4 Encounter for screening for malignant neoplasm of cervix; Z11.51 Encounter for screening for human papillomavirus (HPV) | CPT/HCPCS: 77063; 77067; G0123; G0463 ==

== ENCOUNTER → 2023-12-22 | Outpatient (REF) | payer OTHER | LOC: M SFHCWAGY 13:43 | PROVIDERS: ATTEND Nurse Practitioner Family | DX: Z12.4 Encounter for screening for malignant neoplasm of cervix (principal); Z11.51 Encounter for screening for human papillomavirus (HPV) ==

== ENCOUNTER → 2024-06-02 | Outpatient (REF) | payer OTHER ==
[~2024-06-02] MED LIST changes: -ROSU5TAB40 PO; +ROSU5TAB49 PO
[2024-06-02 13:17] LABS: RSV AMPLIFICATION NEGATIVE (NEGATIVE)
== END ==
LOC: M LAB REF 12:12
PROVIDERS: ATTEND Internal Medicine
DX: J06.9 Acute upper respiratory infection, unspecified (principal)

== ENCOUNTER → 2025-01-24 | Outpatient (CLI) | payer OTHER ==
[~2025-01-24] MED LIST changes: -RA T500C2 PO; +TURM500C10 PO
== END ==
LOC: M WHC 10:37
PROVIDERS: ATTEND Nurse Practitioner Family
DX: Z12.31 Encounter for screening mammogram for malignant neoplasm of breast (principal)